=== PATIENT | male | born 1960 | race Caucasian/White ===

== ENCOUNTER → 2016-10-15 | Outpatient (CLI) | payer BC, OTHER ==
[~2016-10-15] MED LIST: ASPIR 8181 MG PO; BACTRIM DS TAB1 EACH PO; BYSTOLIC 5 MG5 M1 PO; CRESTOR10 MG PO; MOBIC15 MG PO; NAPROSYN500 MG PO; NORCO 5-325 TA1 EACH PO; PRAVACHOL40 MG PO
== END ==
LOC: CAT 04:59
DX: I71.4 Abdominal aortic aneurysm, without rupture (principal); Z95.828 Presence of other vascular implants and grafts

== ENCOUNTER → 2020-05-01 | Outpatient (CLI) | payer OTHER | LOC: CAT 15:09 | PROVIDERS: ATTEND Family Medicine | DX: Z13.6 Encounter for screening for cardiovascular disorders (principal); I25.10 Atherosclerotic heart disease of native coronary artery without angina pectoris; E78.00 Pure hypercholesterolemia, unspecified ==

== ENCOUNTER → 2020-05-01 | Outpatient (CLI) | payer BC, OTHER | LOC: SJCVCIMAG 13:37 | PROVIDERS: ATTEND Internal Medicine Cardiovascular Disease | DX: I65.23 Occlusion and stenosis of bilateral carotid arteries (principal); I70.8 Atherosclerosis of other arteries; I71.4 Abdominal aortic aneurysm, without rupture; I10 Essential (primary) hypertension; E78.00 Pure hypercholesterolemia, unspecified; F17.200 Nicotine dependence, unspecified, uncomplicated; Z95.828 Presence of other vascular implants and grafts ==

== ENCOUNTER → 2020-05-30 | Outpatient (CLI) | payer BC, OTHER ==
[~2020-05-30] MED LIST changes: +ASA81BEC PO; +ASPIRIN325 PO; +BYSTOLIC10 MG PO; +DICLOFENAC SODI75 MG PO; +EDARBI40 MG PO; +EFFIENT10 MG PO; +ROSUVASTATIN CA10 MG PO
== END ==
LOC: SJCVCIMAG 08:27
PROVIDERS: ATTEND Internal Medicine Cardiovascular Disease
DX: I25.10 Atherosclerotic heart disease of native coronary artery without angina pectoris (principal); I49.3 Ventricular premature depolarization; I77.89 Other specified disorders of arteries and arterioles; I10 Essential (primary) hypertension; E78.5 Hyperlipidemia, unspecified; Z98.890 Other specified postprocedural states; Z79.899 Other long term (current) drug therapy

== ENCOUNTER 2020-05-31 10:04 | Observation (INO) | payer BC, OTHER ==
[~2020-05-31] VITALS: Ht 185.4 cm; Wt 84.5 kg
[~2020-05-31 10:04] MED LIST changes: -ASA81BEC PO; -ASPIRIN325 PO; -BYSTOLIC10 MG PO; -DICLOFENAC SODI75 MG PO; -EDARBI40 MG PO; -EFFIENT10 MG PO; -ROSUVASTATIN CA10 MG PO
[2020-05-31 10:48] VITALS: BP 139/82
[2020-05-31] MEDS ORDERED: ASA81BEC PO (10:56)
[2020-05-31] MEDS ORDERED: EDARBI40 MG PO (10:57)
[2020-05-31] MEDS ORDERED: BYSTOLIC10 MG PO (10:57)
[2020-05-31] MEDS ORDERED: ROSUVASTATIN CA10 MG PO (10:58)
[2020-05-31] MEDS ORDERED: DICLOFENAC SODI75 MG PO (10:59)
[2020-05-31 11:01] LABS: HEMATOCRIT 46.8 % (42.0-52.0); HEMOGLOBIN 15.7 gm/dL (14.0-18.0); MCH 30.1 pg (26.0-34.0); MCHC 33.5 g/dL (28.0-37.0); MCV 89.9 fL (80.0-100.0); RBC 5.21 mil/uL (4.50-6.00); RDW 13.5 % (10.5-14.5); WBC 4.7 thou/uL (4.0-11.0)
[2020-05-31 11:06] LABS: CALCIUM 8.8 mg/dL (8.5-10.1); CREATININE 0.9 mg/dL (0.7-1.3); POTASSIUM 4.3 mmol/L (3.5-5.1)
[2020-05-31] MEDS ORDERED: EFFIENT10 MG PO (14:17)
[2020-05-31] MEDS ORDERED: ASPIRIN325 PO (14:17)
--- NOTE | 2020-05-31 15:41 | CATHLAB ---
[facility] [place] [address] INVASIVE PROCEDURE REPORT Name: ZULLY OWENS Room #: REG BROOKE OrozcoNichelle#: [id number] Admission: 05/31/20 Attend Phys: Nghia Garcia MD, Discharge: Date of : 60 Report #: [id number] THIS REPORT FOR: cc: Adelso Michael James L. DO Mancuso, Gerald M. 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 A PINNACLE 6FR Sheath #[id number] sheath was inserted into the RFA^. Coronary angiography was performed using coronary diagnostic catheters. The right coronary system was accessed and visualized with a JR4 catheter. The left coronary system was accessed and visualized with a JL4 catheter. The left ventricle was accessed and visualized with a PIGTAIL catheter. Left ventriculogram was performed in 30 degree projection. An aortogram of the abdominal aorta was performed. Closure device was deployed with a 6 Fr MYNXGRIP 6/7F #[id number]. Hemostasis was obtained with manual pressure following sheath removal without any complications. The patient tolerated the procedure well and there were no complications associated with the procedure. There was no hematoma. Intraoperative Conscious Sedation Sedation start time: 1237 Case end Time: [facility] [address] [place] [address] INVASIVE PROCEDURE REPORT Name: ZEINAJORGE LZULLY Room #: REG REPLACED BY [facility]#: [id number] Admission: 05/31/20 Attend Phys: Nghia Garcia, Discharge: Date of : 60 Report #: [id number] 1327 Fentanyl 100 mcg Versed 1 mg Fluoro Time: 6.90 minutes Dose: DAP 22668.10 cGycm2 1774 mGy Contrast Type and Amount: Omnipaque 155 ml Hemodynamics The aortic pressure is 133/73 mmHg with a mean of 71 mmHg. The left ventricular pressure is 132/10 mmHg with a mean of mmHg. The left ventricular end diastolic pressure is 16 mmHg. PCI Technique Lesion Percutaneous coronary intervention was performed on the proximal left anterior descending artery segment. A LAUNCHER 6FR EBU 3.5 #[id number] Guide Catheter was used to engage the ostium. A Luge Wire .014 x 182CM #[id number] Interventional Guidewire was used to cross the lesion. BALLOON DILATION A Balloon catheter RESOLUTE MICHAEL OTW 3.0 X 15 #[id number] was inserted and inflated up to 10.00atm for 21seconds. Additional Inflation: 14.00atm for 24seconds. Conclusion #1. Successful PTCA stent of a proximal LAD eccentric 80% lesion just after a diagonal takeoff. Placement of a 3 oh by 15 resolute drug-eluting stent SUN grade III flow mild to moderate distal disease this vessel extends around the apex. The diagonal branch was jailed third by the stent remains widely patent. #2 left main mild disease giving rise to the LAD and circumflex. #3 the circumflex is a large vessel although anatomically nondominant it is mild irregularity. There is a first OM branch that is moderately diseased but a very small less than 1 cm vessel. #4 dominant right coronary eccentric 3040% proximal and mid vessel lesion giving rise to a small PDA this is essentially a codominant system the PDA predominantly comes off of the circumflex. #5 normal left ventricular size ejection fraction lower limits of normal EF 50% range. #6 abdominal aortogram reveals an intact aortic stent graft. No evidence of significant leakage into residual aneurysm. Brisk flow through the covered stent graft is noted. Recommendations and plan: Continue aggressive risk factor modification. Dual antiplatelet therapy has been initiated. Patient [facility] [address] [place] [address] INVASIVE PROCEDURE REPORT Name: ZEINAJORGE LZULLY Room #: REG SHANA Castro#: [id number] Admission: 05/31/20 Attend Phys: Nghia Garcia, Discharge: Date of : 60 Report #: [id number] transferred to CCU to follow post coronary stent protocol. Hemodynamically stable and pain-free. <ELECTRONICALLY SIGNED> By: Nghia Garcia MD, FACC 05/31/20 1541 [id number] 154 Nghia Garcia MD, FACC /INF
[2020-05-31 17:07] VITALS: BP 157/112
--- NOTE | 2020-05-31 18:20 | NUR ---
PT ADMITED FROM [facility]IE[facility]. ADMISSION HISTORY AND ASSESSMENT COMPLETED. VSS. DENIED HAVING PAIN OR DISCOMFORT. RIGHT GROIN INCISION C/D/I. NO HEMATOMA NOTED. NO CONCERNS AT THIS TIME.
[2020-05-31 20:04] VITALS: BP 169/110
[2020-06-01 00:05] VITALS: BP 147/76
[2020-06-01 04:48] VITALS: BP 145/95
[2020-06-01 05:41] LABS: HEMATOCRIT 47.6 % (42.0-52.0); HEMOGLOBIN 15.9 gm/dL (14.0-18.0); MCHC 33.4 g/dL (28.0-37.0); MCV 89.9 fL (80.0-100.0); RBC 5.3 mil/uL (4.50-6.00); RDW 13.5 % (10.5-14.5); WBC 5.5 thou/uL (4.0-11.0)
--- NOTE | 2020-06-01 06:13 | NUR ---
ASSUME CARE 1900. PT STABLE. BP RUNS HIGH. BP MEDS ON BOARD FOR CONTROL. SR ON MONITOR. NO DISTRESS NOTED THROUGH THE NIGHT. PT DENIES PAIN AND TOLERATES ACTIVITY WELL. NO SOB NOTED. 1 BARRON TO LAD. PLAN IS A POSSIBLE DISCHARGE TODAY. WILL CONTINUE TO MONITOR AND FOLLOW WITH POC
[2020-06-01 06:41] LABS: ALBUMIN 3.8 g/dL (3.4-5.0); ANION GAP 11 mmol/L (7-16); BUN 10 mg/dL (7-18); CALCIUM 8.8 mg/dL (8.5-10.1); CHLORIDE 106 mmol/L (98-107); CO2 24 mmol/L (21-32); CREATININE 0.9 mg/dL (0.7-1.3); GLUCOSE 110 mg/dL (74-106); POTASSIUM 4.3 mmol/L (3.5-5.1); SGOT 43 U/L (15-37); SGPT 68 U/L (30-65); SODIUM 141 mmol/L (136-145); TOTAL BILIRUBIN 0.6 mg/dL (0.2-1.0); TOTAL PROTEIN 7.1 g/dL (6.4-8.2); TROPONIN-I <0.06 ng/mL (<0.06)
[2020-06-01 07:50] VITALS: BP 137/94
[2020-06-01 09:36] VITALS: BP 137/94
--- NOTE | 2020-06-01 11:21 | EKG ---
[facility] [place] [address] ELECTROCARDIOGRAM REPORT Name: ZULLY OWENS Room #: 216- DIS [facility] M.R.#: [id number] Admission: 05/31/20 Attend Phys: Nghia Garcia MD, Discharge: 06/01/20 Date of : 60 Report #: [id number] THIS REPORT FOR: cc: Adelso Michael James L. DO Lammoglia, Francisco J. MD ~ THIS REPORT FOR: //name// [facility] Test Date: 2020-06-01 Test Time: 07:46:09 Pat Name: ZULLY OWENS Department: Room: 216 Gender: M Pc Tech: SREE : 1960 Requested By: Angelita Jeffries Order Number: [id number] MD: Stef Arnold Measurements Intervals Hydes Rate: 51 P: 43 WI: 181 QRS: -36 QRSD: 95 T: 17 QT: 439 QTc: 405 Interpretive Statements Sinus rhythm Left axis deviation Non Specific ST/T wave changes Compared to ECG 10/24/2014 07:54:21 Left-axis deviation now present Electronically Signed On 06-01-2020 11:20:53 [employer] by Stef Arnold [email or web address] <ELECTRONICALLY SIGNED> By: Stef Arnold MD 06/01/20 1120 Stef Arnold MD /EPI
== END 2020-06-01 10:56 | disposition home or self-care (01) ==
LOC: CATH 10:04 → 2N 16:59
PROVIDERS: Nurse Practitioner Adult Health; ADMIT Internal Medicine Cardiovascular Disease; ATTEND Internal Medicine Cardiovascular Disease
DX: I25.10 Atherosclerotic heart disease of native coronary artery without angina pectoris (principal); I10 Essential (primary) hypertension; E78.5 Hyperlipidemia, unspecified; I71.4 Abdominal aortic aneurysm, without rupture; E78.00 Pure hypercholesterolemia, unspecified; F17.200 Nicotine dependence, unspecified, uncomplicated; Z79.82 Long term (current) use of aspirin; Z79.899 Other long term (current) drug therapy

== ENCOUNTER → 2020-06-06 | Outpatient (CLI) | payer BC, OTHER ==
[~2020-06-06] MED LIST changes: +ASA81BEC PO; +ASPIRIN325 PO; +BYSTOLIC10 MG PO; +DICLOFENAC SODI75 MG PO; +EDARBI40 MG PO; +EFFIENT10 MG PO; +ROSUVASTATIN CA10 MG PO
== END ==
LOC: SJCVCIMAG 12:40
PROVIDERS: ATTEND Internal Medicine Cardiovascular Disease
DX: R19.09 Other intra-abdominal and pelvic swelling, mass and lump (principal); R10.9 Unspecified abdominal pain; G89.29 Other chronic pain; F17.200 Nicotine dependence, unspecified, uncomplicated; Z79.899 Other long term (current) drug therapy